=== PATIENT | male | born 1970 | race Caucasian/White ===

== ENCOUNTER 2016-11-20 17:05 | Emergency (ER) | payer BC ==
--- NOTE | 2016-11-20 17:28 | UCPHY ---
H & P Patient Type: New Chief Complaint Nursing Narrative: groin discomfort and swelling Source: Patient - Family History Significant Family History: No pertinent family hx - Social History Smoking Status: Never smoked Alcohol Use: None Drug Use: None Time Seen by Provider: 11/20/16 17:26 HPI/ROS: HPI: 46-year-old male presents to urgent care with chief concern left groin swelling and left testicular discomfort that onset 2.5 weeks ago. He denies fever, chills, nausea, vomiting, abdominal pain, back or flank pain, urinary symptoms including burning, frequency, hematuria, penile discharge, or lesions. No aggravating or alleviating factors. Symptoms have worsened somewhat over the past 2.[address] Primary care providers Dr. Bryce Avilez. Drove 14 hours yesterday. No calf pain swelling. No shortness of breath or chest pain. ROS:10 point review of systems is negative other than as stated in HPI (Rebecca Borrego) - Physical Exam Exam: Vital signs reviewed by me General: Awake, alert, calm, cooperative. No acute distress. Head: Normalocephalic. Atraumatic. EENT: PERRLA. EOMI. No pallor or injection. Anicteric. No nystagmus. Neck: Supple, nontender. Respiratory: Breathing unlabored. Breath sounds equal bilaterally and clear to auscultation. No adventitious sounds. CV: Chest nontender, atraumatic. Heart rate regular. Brisk cap refill all extremities. GI: Abdomen soft, nontender. Bowel sounds normoactive and positive x 4 quadrants. : No CVA or flank tenderness. Left groin with tenderness to palpation of the region of the inguinal canal. No mass appreciated. Left testicle with mild discomfort to palpation. No erythema or swelling appreciated. No penile discharge. Neuro: Alert. Oriented x 3. Speech clear. Nonfocal cranial nerves throughout. Sensation intact all extremities. Follows commands. Skin: Skin warm, dry, intact. Skin turgor normal. Extremities: Full range of motion in all 4 extremities. Mental status: Interactive, appropriate, well-groomed. (Rebecca Borrego) Constitutional: Initial Vital Signs Temperature (C) 37.3 C 11/20/16 17:33 Heart Rate 117 H 11/20/16 17:33 Respiratory Rate 18 11/20/16 17:33 Blood Pressure 158/100 H 11/20/16 17:33 O2 Sat (%) 94 11/20/16 17:33 O2 Delivery Mode Room Air Allergies/Adverse Reactions: No Known Allergies Allergy (Unverified 11/20/16 17:31) Home Medications: Medication Instructions Recorded NK [No Known Home Meds] 11/20/16 Medical Decision Making ED Course/Re-evaluation: 46-year-old male presents to Urgent Care with left groin and left testicular discomfort and swelling ongoing for 2.5 weeks. He is afebrile without systemic symptoms. He has no urinary symptoms. Ultrasound has left for the day thus he will be transferred to ED at [facility] for further evaluation and treatment. Report given to Dr. Jean at [facility] (Rebecca Borrego) Differential Diagnosis: Differential includes but is not limited to epididymitis, orchitis, varicocele, hydrocele, testicular cancer, STI, UTI, kidney stone (Rebecca Borrego) Other Provider: The patient was evaluated and managed by the nurse practitioner, Rebecca Borrego.. My co-signature indicates that I have reviewed this chart and I agree with the findings and plan of care as documented. I am the secondary supervising physician. (Barb Chilel) Departure - Departure Disposition: Acute Care Hospital Not [facility] Clinical Impression: Left groin pain, Testicular pain, left Condition: Fair Instructions: Testicle Pain (ED), Groin Pain (ED) Additional Instructions: Plan: Go to [facility] emergency department. Dr. Jean is expecting you Referrals: Bryce Avilez MD [Primary Care Provider] - As per Instructions - PQRS PQRS Measurement: Not applicable (Rebecca Borrego)
[2016-11-20 17:36] VITALS: BP 158/100; PULSE 117; TEMP 99.1
[2016-11-20 18:13] VITALS: RESP 16; O2SAT 97
== END 2016-11-20 18:00 | disposition short-term general hospital (02) ==
LOC: CED 17:05
DX: N50.812 Left testicular pain (principal); R19.09 Other intra-abdominal and pelvic swelling, mass and lump
CPT/HCPCS: G0463-PO